=== PATIENT | female | born 1970 | race Caucasian/White ===

== ENCOUNTER 2020-10-18 22:38 | Emergency (ER) | payer MEDICAID, SELFPAY ==
[~2020-10-18] VITALS: Ht 167.6 cm; Wt 72.6 kg
[2020-10-18 22:40] VITALS: Ht 167.6 cm; Wt 72.6 kg
[2020-10-19 00:15] VITALS: BP 144/81
== END 2020-10-19 00:15 | disposition home or self-care (01) ==
LOC: ED 22:38
DX: R05 Cough (principal); R07.89 Other chest pain; R07.0 Pain in throat; Z20.828 Contact with and (suspected) exposure to other viral communicable diseases
CPT/HCPCS: U0003